=== PATIENT | male | born 1995 | race Hispanic/Latino ===

== ENCOUNTER 2018-12-16 18:55 | Emergency (ER) | payer MEDICAID ==
[2018-12-16] MEDS ORDERED: TETRACAINE HCL 0.5% 4 ML OPHTH SOLN ONE (20:35)
[2018-12-16] MEDS ORDERED: NA BORATE/BORIC AC/H2O/NACL 120 ML OPHTH IRRIG SOLN ONE (20:35)
[2018-12-16] MEDS ORDERED: FLUORESCEIN SODIUM 1 STRIP STRIP ONE (20:36)
== END 2018-12-16 21:23 | disposition home or self-care (01) ==
LOC: EDH 18:55
DX: S05.02XA Injury of conjunctiva and corneal abrasion without foreign body, left eye, initial encounter (principal); Z72.0 Tobacco use; X58.XXXA Exposure to other specified factors, initial encounter; Y93.89 Activity, other specified; Y92.89 Other specified places as the place of occurrence of the external cause; Y99.8 Other external cause status